=== PATIENT | female | born 1985 ===

== ENCOUNTER 2018-01-03 17:39 | Emergency (ER) | payer MEDICAID ==
[2018-01-03 17:43] VITALS: BP 107/72; PULSE 77; RESP 18; TEMP 98.5; O2SAT 96
--- NOTE | 2018-01-03 18:07 | C.PDOC ---
History Of Present Illness 33 yo female come in for evaluation of Right thumb injury sustained 7 AM this morning. Pt sts, " finger got caught in car door". Pt reports, pain is diffuse over Right thumb, worse with thumb movement. Otherwise, pt denies obvious deformity, open wound, weakness, sensory or vascular deficits to Right thumb. Ambulate to Ed for evaluation, appears in pain. Time Seen by Provider: 01/03/18 17:48 Chief Complaint (Nursing): Finger,Hand,&Wrist History Per: Patient Onset/Duration Of Symptoms: Sudden Onset Past Medical History Reviewed: Historical Data, Nursing Documentation, Vital Signs Vital Signs: Last Vital Signs Temp 98.5 F 01/03/18 17:43 Pulse 77 01/03/18 17:43 Resp 18 01/03/18 17:43 BP 107/72 01/03/18 17:43 Pulse Ox 96 01/03/18 18:20 - Medical History PMH: No Chronic Diseases Family History: States: No Known Family Hx - Social History Hx Alcohol Use: No Hx Substance Use: No - Immunization History Hx Tetanus Toxoid Vaccination: No Hx Influenza Vaccination: No Hx Pneumococcal Vaccination: No Review Of Systems Except As Marked, All Systems Reviewed And Found Negative. Constitutional: Negative for: Fever, Chills Musculoskeletal: Positive for: Other (Right thumb pain) Skin: Positive for: Other (nail contusion of Right thumb). Negative for: Lesions Neurological: Negative for: Weakness, Numbness Physical Exam - Physical Exam Appears: Well, Non-toxic, No Acute Distress Skin: Normal Color, Warm Extremity: Normal ROM (mild discomfort to Right thumb abduction/flexion due to pain. No neurovascular deficits.), Tenderness (diffuse dorsal aspect Right thumb , Small sububgual hematoma noted base of nail bed. No palpable deformity, no open wound.), Capillary Refill (less than 2sec to Right thumb), No Deformity, No Swelling Neurological/Psych: Oriented x3, Normal Speech, Normal Motor, Normal Sensation, Normal Reflexes ED Course And Treatment O2 Sat by Pulse Oximetry: 96 - Other Rad Right thumb X-Ray: Interpreted by Me, Viewed By Me Interpretation: (-) acute fx or dislocation Progress Note: On re-eval, pt is afebrile, hemodynamicaly stable. Right hand: exam c/w thumb contusion with samll sububgual hematoma. No deformity, no weakness, no neurovascular deficits. FAROM. Xray review (-) acute fx or dislocation. Aluminium finger splint applied. Pt advised.ref. to f/u with hand specialsit in 2-3 days for re-eavl. return if any new changes. Disposition Counseled Patient/Family Regarding: Studies Performed, Diagnosis, Need For Followup, Rx Given - Disposition Referrals: Jo Clinton MD [Medical Doctor] - Calli Almeida MD [Staff Provider] - Disposition: HOME/ ROUTINE Disposition Time: 18:13 Condition: STABLE Additional Instructions: Light duty to finger Splint for 1 week Follow up with PMD, hand specialist in 2-3 days for re-evaluation. return to ED if any worsening or new changes. Prescriptions: traMADol [Ultram] 50 mg PO TID #7 tab Instructions: Contusion (DC), Jammed Finger Forms: [employer] (Arabic) - Clinical Impression Clinical Impression: Finger contusion, Subungual hematoma
--- NOTE | 2018-01-04 09:58 | RAD ---
PROCEDURE: Right Thumb radiographs. HISTORY: Injury COMPARISON: None. TECHNIQUE: AP radiograph of the right hand, as well as spot oblique and lateral images of thumb were obtained. FINDINGS: RIGHT THUMB: Normal right thumb, without acute fracture or focal lesion. Remainder of the right hand (as seen on the AP view) grossly unremarkable. JOINTS: Normal. SOFT TISSUES: Normal. OTHER FINDINGS: None. IMPRESSION: No acute fracture or dislocation.
== END 2018-01-03 18:36 | disposition home or self-care (01) ==
LOC: C.ER 17:39
DX: S60.111A Contusion of right thumb with damage to nail, initial encounter (principal); W23.0XXA Caught, crushed, jammed, or pinched between moving objects, initial encounter